=== PATIENT | male | born 1950 | race Caucasian/White ===

== ENCOUNTER → 2019-10-25 | Outpatient (CLI) | payer BC, MEDICARE ==
--- NOTE | 2019-10-25 12:10 | KCIC ---
MR of the left shoulder TECHNIQUE: Routine multiplanar sequences are obtained. FINDINGS: Acromioclavicular joint is mildly degenerative. Complete full-thickness rupture of the supraspinatus and infraspinatus tendon. Retraction measures 3.5 cm. Acute intramuscular infraspinatus edema. Mild fluid/hemorrhage surrounding these muscles. Only mild atrophy. Mild partial tearing of the upper subscapularis tendon insertion. Mild fluid in the joint and subdeltoid bursa. Motion degradation limits labral evaluation. Probable superior labral tear extending into the anterior and posterior quadrants. No advanced DJD or acute chondral defect. Biceps tendon is intact. No acute fracture. No aggressive bone destruction. Partially visualized soft tissue lesion in the subcutaneous fat at the superior-medial shoulder, superior to the posterior trapezius muscle. Measures about 1.9 x 1.2 cm with an irregular shape and fluid T2 signal. This may represent a cyst. IMPRESSION: 1. Complete full-thickness supraspinatus and infraspinatus tendon rupture with acute muscle injury and retraction. Mild partial subscapularis tendon tear. 2. Superior labral tear. 3. Irregular soft tissue lesion in the superior subcutaneous tissues, limited visualization compromises accurate characterization but may represent a cyst. Targeted ultrasound could further evaluate as indicated. Electronically signed by: Gregory Yañez MD (10/25/2019 12:07 PM) [facility]
== END | disposition home or self-care (01) ==
LOC: KCIC MRI 07:49
PROVIDERS: ATTEND Family Medicine
DX: S43.432A Superior glenoid labrum lesion of left shoulder, initial encounter (principal); S46.012A Strain of muscle(s) and tendon(s) of the rotator cuff of left shoulder, initial encounter; M79.89 Other specified soft tissue disorders; X58.XXXA Exposure to other specified factors, initial encounter; Y93.89 Activity, other specified; Y92.89 Other specified places as the place of occurrence of the external cause; Y99.8 Other external cause status
CPT/HCPCS: 73221

== ENCOUNTER 2019-11-17 10:34 | Day surgery (SDC) | payer BC, MEDICARE ==
[~2019-11-17] VITALS: Ht 170.2 cm; Wt 77.6 kg
[~2019-11-17 10:34] MED LIST: HYDROmorphone 2 MG/ML VIAL IV PRN; IV RINGERS,LACTATED 1000ML 1,000 ML IV SCH; LIDOCAINE 1% PF 2 ML VIAL. ID PRN; LIDOCAINE 2% PF 5 ML VIAL. ONE; MORPHINE SULFATE 2 MG/ML VIAL. IV PRN; ONDANSETRON PF 4 MG/2 ML VIAL. IV PRN; PROCHLORPERAZINE 10 MG/2 ML VIAL. IV PRN; PROPOFOL 20 ML IV ONE; ROCURONIUM 50 MG/5 ML VIAL. ONE; SUCCINYLCHOLINE 200 MG/10 ML VIAL. ONE; ceFAZolin SODIUM IV Push 1 GM VIAL. IVP PRN; fentaNYL PF VIAL 100 MCG/2 ML VIAL IV PRN; fentaNYL PF VIAL 100 MCG/2 ML VIAL ONE
[2019-11-17] MEDS ORDERED: LEVO150T5 PO (10:57)
[2019-11-17] MEDS ORDERED: ROPIVacaine 0.5% PF 20 ML VIAL. ONE ×2 (11:24→11:40)
[2019-11-17] MEDS ORDERED: fentaNYL PF VIAL 100 MCG/2 ML VIAL ONE (11:25)
[2019-11-17] MEDS ORDERED: MIDAZOLAM HCL/PF 2 MG/2 ML VIAL. ONE (11:25)
[2019-11-17] MEDS ORDERED: DEXAMETHASONE SOD PHOS 4 MG/ML VIAL ONE ×2 (11:41→14:03)
--- NOTE | 2019-11-17 12:10 | DISCH ---
DISCHARGE INSTRUCTIONS Condition on Discharge Condition on Discharge: Stable Activity After Discharge Activity Instructions for Disc: Other ROM activity Other activity instructions: arm to remain in sling Bathing Instructions: Shower-keep dressing dry Weight Bearing Status after Di: Non weight bearing Diet after Discharge Diet after Discharge: Regular Wound Incision Care Wound/Incision Care: Ice to area for comfort, Keep wound/cast CDI, Change dressing Other wound/incision instructi: okay to change dressing after 2-[address] after DC Call your doctor for: Concerns you may have Follow-Up Follow up with: Miguelito in 2 wks Treatment/Equipment after DC Adaptive Equipment Issued: None TRISTIN LAMBERT II, MD Nov 17, 2019 12:10
[2019-11-17] MEDS ORDERED: EPINEPHrine VIAL 30 MG/30 ML VIAL ONE (13:20)
[2019-11-17] MEDS ORDERED: LIDOCAINE 1% PF 30 ML VIAL. ONE (13:34)
[2019-11-17] MEDS ORDERED: BUPIVACAINE MPF 0.5% 30 ML VIAL. ONE (13:34)
[2019-11-17] MEDS ORDERED: PHENYLEPHRINE in 0.9% NACL PF 1 MG/10 ML SYRINGE. IV ONE (14:03)
[2019-11-17] MEDS ORDERED: DESFLURANE 61 TO 120 MINUTES IH ONE (14:03)
[2019-11-17] MEDS ORDERED: ONDANSETRON PF 4 MG/2 ML VIAL. ONE (14:18)
[2019-11-17] MEDS ORDERED: NEOSTIGMINE 10 MG/10 ML VIAL. ONE (14:18)
[2019-11-17] MEDS ORDERED: GLYCOPYRROLATE 1 MG/5 ML VIAL. ONE (14:18)
--- NOTE | 2019-11-17 15:07 | PDOC4 ---
Operative Note Operative Note Date of procedure: 11/17/19 Surgeon: Leroy Lambert Broadcast Correspondent: Tomás Najera, certified ophthalmic medical technician Preoperative diagnosis: left shoulder massive rotator cuff tear Postoperative diagnosis: left shoulder massive rotator cuff tear Procedure performed: arthroscopic left shoulder rotator cuff repair Anesthesia: Gen. plus regional nerve block Findings: #1 large, retracted to glenoid, rotator cuff tear involving supraspinatus and infraspinatus #2 softening at glenohumeral cartilage #3 degenerative labral fraying #4 some inflammation in biceps tendon, otherwise unremarkable #5 no loose bodies Blood loss: 10mL Components inserted: [employer] Helacoil anchor and footprint Reason for procedure: Patient is a very pleasant gentleman who has had developed acute shoulder pain and dysfunction after a fall Clinical and radiographic examination, including MRI were consistent with the preoperative diagnosis. Due to the acute nature, we elected to proceed with arthroscopic rotator cuff repair after we had a discussion of the risks, benefits, and alternatives, the patient elected to proceed. Description of procedure: Patient was greeted in the preoperative holding area where the correct extremity was verified and marked. They were taken to the preoperative holding area where the anesthesiology team placed a regional nerve block. The patient was then taken back to the operative suite and antibiotics were started as they were brought back. Once in the operative room, the patient was transferred gently supine to the operating room table after successful induction of a general anesthetic. After this, he was sat up in a beachchair position maintaining his C-spine in neutral position, large pad under his legs, he was secured to the bed. We then prepped and draped his left upper extremity and shoulder girdle in our usual sterile fashion, we conducted our standard preoperative timeout. I palpated and marked surface anatomy for my planned portal sites. I then used a spinal needle to localize a posterior superior portal and incised skin in accordance with this. After this, I introduced the blunt arthroscopic trocar into the glenohumeral joint followed by the camera. I used a spinal needle to localize an anterosuperior portal and incised skin in accordance with this. I then introduced my arthroscopic probe and conducted my diagnostic arthroscopy with the above-noted findings. After this, I repositioned the camera into the subacromial space and performed a bursectomy with combination of shaver and electrocautery device. I used a spinal needle to localize a lateral portal and incised skin in accordance with this at this time. I then identified the rotator cuff tear and I debrided the pathologic tendon and prepared my footprint. I then placed a traction stitch and the rotator cuff and it was quite stuck so I spent time with my cautery device performing releases above and below the tendon until the mobility improved, I was able to use a tissue grasper to mobilize the posterior aspect of the rotator cuff, but not the anterior. The anterior portion of this tear, supraspinatus and leading edge of surface infraspinatus were very friable. I then placed my helacoil anchor and shuttled limbs through in a simple configuration at the posterior aspect of this tear and I then I tied these down with arthroscopic knot-tying techniques. After this, I shuttled 4 limbs through my lateral row fixation device and impacted this into position after preparing the hole. The tear was stable to probing and to gentle rotation of the arm. I then removed all loose bony debris and the excess arthroscopic fluid. I took my final pictures prior to this. After this, all the excess fluid and instrumentation was removed. The portals were closed with simple interrupted 3-0 nylon. Sterile dressing was applied followed by an abduction pillow sling. Patient tolerated surgery well. No complications. At the conclusion, he was laid supine and transferred gently supine to the recovery room cart and taken to the PACU in a stable and extubated condition. Postoperative plan is discharge him home, nonweightbearing for 6 weeks. Well get him started on physical therapy after about 2 weeks. He will follow up with me in 2 weeks, sooner should a problem arise. LEROY LAMBERT II, MD Nov 17, 2019 15:07
[2019-11-17 15:30] VITALS: BP 114/73
[2019-11-17] MEDS ORDERED: ONDA8TAB9 PO (15:52)
[2019-11-17] MEDS ORDERED: OXYC-325 PO (15:52)
[2019-11-17] MEDS ORDERED: DOCU-109 PO (15:53)
== END 2019-11-17 16:45 | disposition home or self-care (01) ==
LOC: SURG 10:34
PROVIDERS: ATTEND Orthopaedic Surgery Sports Medicine
DX: S46.012A Strain of muscle(s) and tendon(s) of the rotator cuff of left shoulder, initial encounter (principal); M24.112 Other articular cartilage disorders, left shoulder; E03.9 Hypothyroidism, unspecified; D64.9 Anemia, unspecified; N40.0 Benign prostatic hyperplasia without lower urinary tract symptoms; I10 Essential (primary) hypertension; Z98.890 Other specified postprocedural states; Z79.899 Other long term (current) drug therapy; Z72.89 Other problems related to lifestyle; W19.XXXA Unspecified fall, initial encounter; Y93.89 Activity, other specified; Y92.89 Other specified places as the place of occurrence of the external cause; Y99.8 Other external cause status
CPT/HCPCS: 29827; 36415; 64415; 82306; A7015; C1713; C1782; J0171; J0330; J0690; J1100; J2001; J2250; J2370; J2405; J2704; J2710; J2795; J3010; J3490; J7120